=== PATIENT | male | born 1955 | race Caucasian/White ===

== ENCOUNTER 2018-06-01 06:16 | Observation (INO) ==
[2018-06-01] MEDS ORDERED: Bisacodyl 10 MG Supp RECTAL PRN (18:30)
[2018-06-01] MEDS ORDERED: Dextrose 50% in Water 50 ML Vial IV.PUSH PRN (18:34)
[2018-06-01] MEDS: Insulin NovoLOG Aspart Correctional Sugar Inj SQ SCH (20:43)
[2018-06-01] MEDS: Ketorolac Inj 30 MG/ML (IVP) Vial IV.PUSH PRN (21:37)
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
[2018-06-02] MEDS ORDERED: Temazepam 15 MG Capsule PO PRN (00:02)
[2018-06-02] MEDS ORDERED: Vancomycin Consult Pharmacy 1 EACH OTHER SCH (00:04)
[2018-06-02] MEDS ORDERED: Vancomycin Inj 1,250 MG in Sodium Chlor 0.9% Inj 250 ML IV.SIG ONE (00:05)
[2018-06-02] MEDS: Morphine Inj 4 MG/ML Vial IV.PUSH PRN ×3 (00:12→08:18)
[2018-06-02] MEDS ORDERED: Vancomycin Inj 2,200 MG in Sodium Chlor 0.9% Inj 500 ML IV.SIG ONE (01:00)
[2018-06-02] MEDS: Piperacil/Tazo 3.375 GM Premix 50 ML IV.SIG SCH ×4 (03:31→17:44)
[2018-06-02] MEDS: Ketorolac Inj 30 MG/ML (IVP) Vial IV.PUSH PRN ×3 (03:32→20:23)
[2018-06-02 08:29] LABS: Bilirubin,Urine Negative (Negative); Clarity,Urine Clear (Clear); Color,Urine Yellow (Yellw/Straw); Glucose,Urine (UA) 500 or Greater mg/dL (Negative); Leukocyte Esterase,Urine Negative (Negative); Nitrite,Urine Negative (Negative); Squamous Epithelial Cell,Urine 1 /hpf (0-5); Urobilinogen,Urine 4 or Greater mg/dL (Less than 2)
[2018-06-02] MEDS: Insulin Detemir Inj 1,000 UNIT/10 ML Vial SQ SCH ×2 (09:00→20:24)
[2018-06-02] MEDS: Insulin NovoLOG Aspart Correctional Sugar Inj SQ SCH ×3 (09:00→17:44)
[2018-06-02] MEDS ORDERED: Lidocaine 1%/Epinephrine 1:100,000 Inj 20 ML Vial INFILTRATN ONE (10:45)
[2018-06-02] MEDS ORDERED: Morphine Inj 4 MG/ML Vial IV.PUSH ONE (11:00)
--- NOTE | 2018-06-02 11:15 | MP ---
cc: Balaji Pedersen MD DATE OF OPERATION: 06/02/2018 DATE OF PROCEDURE: 06/02/2018 PREOPERATIVE DIAGNOSIS: Scrotal abscess. POSTOPERATIVE DIAGNOSIS: Scrotal abscess. PROCEDURE PERFORMED: Incision and drainage of scrotal abscess at the bedside. SURGEON: Balaji Pedersen MD ANESTHESIA: Local. COMPLICATIONS: None. DRAINS: None. SPECIMENS: Wound culture for aerobic and anaerobic. ESTIMATED BLOOD LOSS: Minimal. DISPOSITION: Stable. INDICATION FOR PROCEDURE: The patient is a 62-year-old man with history of diabetes, who presented with scrotal pain and swelling for the last 4 days. Scrotal ultrasound showed a left testicular cyst, but no evidence of abscess. On physical exam, he appeared to have more of an inferior scrotal and perineal fluctuant area consistent with an abscess. Treatment options were discussed and he elected to proceed with a bedside incision and drainage of scrotal abscess. After risks, benefits, and alternatives were explained to the patient, the patient elected to proceed and informed consent was obtained. DETAILS OF PROCEDURE: The patient was then prepped and draped in normal sterile surgical fashion, 1% lidocaine was then used for local anesthetic purposes. It was infiltrated around the fluctuant area. A small 1.5 cm stab incision was made and a significant amount of copious purulent material was expressed. Cultures were obtained. Once all the material was expressed, this area was much softer and less fluctuant. It was then irrigated out with normal saline. Wet-to-dry dressings were applied. This concluded the procedure. The patient remained stable. We will continue IV antibiotics pending cultures and do wet-to-dry dressings daily. Balaji Pedersen MD EMF/KD , 10:53 AM , 11:13 AM
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
--- NOTE | 2018-06-02 16:10 | P.PNFP ---
Subjective Interval history: Pt seen and examined for f/u of scrotal abscess. AFVSS. No acute events overnight. Pt reports since bedside I&D he has significant relief of his pain. In fact he denies any pain. He is ambulating and tolerating PO. Denies fever, chills, nausea, vomiting, abdominal pain, CP, SOB. Results - Labs Result diagrams: 06/02/18 11:29 Abnormal lab results 06/01/18 06/02/18 06/02/18 Range/Units 23:00 08:07 11:29 Estimated GFR 82 L (>89) mL/min POC Glucose 308 H (68-110) mg/dl Ur Specific [place] 1.040 H (1.002-1.035) 06/02/18 Range/Units 11:56 Estimated GFR (>89) mL/min POC Glucose 359 H (68-110) mg/dl Ur Specific [place] (1.002-1.035) BMP 06/02/18 11:29 Creatinine 0.93 Urine 06/01/18 Range/Units 23:00 Urine Color Yellow (Yellw/Straw) Urine Clarity Clear (Clear) Urine pH 6.0 (5.0-8.5) Ur Specific [place] 1.040 H (1.002-1.035) Urine Protein Negative (Neg-Trace) mg/dL Urine Glucose (UA) 500 or greater (Negative) mg/dL Physical Exam Vital signs: Vital Signs 06/01/18 18:17 06/01/18 19:00 06/01/18 19:24 Temperature 98.2 F 98.6 F Pulse Rate 63 52 L 60 Respiratory Rate 18 18 Blood Pressure 128/77 142/76 H Pulse Oximetry 95 98 06/02/18 00:00 06/02/18 04:00 06/02/18 07:00 Temperature 98 F Pulse Rate 69 59 L 53 L Respiratory Rate 16 18 Blood Pressure 122/78 101/54 L Pulse Oximetry 97 95 06/02/18 08:00 06/02/18 09:00 06/02/18 12:00 Temperature 98.2 F 98.6 F Pulse Rate 65 61 Respiratory Rate 18 18 18 Blood Pressure 108/66 122/78 Pulse Oximetry 96 96 06/02/18 12:30 06/02/18 14:58 Temperature Pulse Rate Respiratory Rate 18 18 Blood Pressure Pulse Oximetry Intake & Output 06/01/18 06/02/18 06/02/18 18:59 06:59 18:59 Intake Total 240 / 240 290 / 290 Output Total 200 / 200 Balance 240 / 240 90 / 90 Weight 88.63 kg Intake: IV 50 / 50 Zosyn 3.375 GM Premix 50 ML @ 50 / 50 100 mls/hr IV.SIG Q6H [facility] Rx#: [id number] Oral 240 / 240 240 / 240 Output: Urine 200 / 200 Other: Date of Last Bowel Movement 05/30/18 05/30/18 05/30/18 Weight On Admission 88.63 kg Narrative: GENERAL: WN, WD male sitting up on the side of bed eating. SKIN: Warm and dry. HEENT: AT/NC. Pupils equal and round. MMM. HEART: RRR no m/r/g. LUNGS: CTAB without wheezes or crackles. ABDOMEN: +BS, soft, NT, ND. : Erythema of scrotum with associated minimal draining ulceration previously incised earlier in the day. EXTREMITIES: No LE edema. 2+ pedal pulses. NEURO: Awake and alert. Nonfocal. PSYCH: Appropriate mood and affect. Assessment and Plan - Assessment (1) Scrotal abscess Code(s): N49.2 - Inflammatory disorders of scrotum Status: Acute - Assessment and Plan 62 YOWM with DM admitted on 06/01 for testicular pain and erythema found to have an abscess. 1. Scrotal abscess - Not meeting septic criteria (normal white count and lactic acid, afebrile) - Urology consulted and patient underwent bedside I&D today with copious amount of purulent material - Continue to observe on IV vanc and Zosyn - Follow wound cultures - Blood cultures NG x 1 day - Pain control with PRN Toradol and morphine 2. DM - Levemir and SSI per protocol DVT prophylaxis: SCDs, ambulation
[2018-06-03] MEDS: Insulin NovoLOG Aspart Correctional Sugar Inj SQ SCH ×5 (00:21→20:30)
[2018-06-03] MEDS: Piperacil/Tazo 3.375 GM Premix 50 ML IV.SIG SCH ×4 (00:28→17:38)
[2018-06-03 04:46] LABS: Baso % (Auto) 0.5 % (0.0-2.0); Eos # (Auto) 0.2 th/mm3 (0.0-0.4); Eos % (Auto) 3.5 % (0.0-4.0); Hematocrit 36.9 % (39.0-51.0); Hemoglobin 12.9 gm/dL (13.0-17.0); Lymph # (Auto) 1.8 th/mm3 (1.0-4.8); Lymph % (Auto) 27.1 % (9.0-44.0); Mean Corpuscular Hemoglobin 30.8 pg (27.0-34.0); Mean Corpuscular Volume 87.9 fL (80.0-100.0); Mean Platelet Volume 8.2 fL (7.0-11.0); Mono # (Auto) 0.6 th/mm3 (0.0-0.9); Mono % (Auto) 9.6 % (0.0-8.0); Neut % (Auto) 59.3 % (16.0-70.0); Platelet Count 156 th/mm3 (150-450); Red Cell Distribution Width 12.8 % (11.6-17.2); White Blood Count 6.7 th/mm3 (4.0-11.0)
[2018-06-03 05:12] LABS: Calcium 8.8 mg/dL (8.5-10.1); Carbon Dioxide 28.9 meq/L (21.0-32.0)
[2018-06-03] MEDS: Ketorolac Inj 30 MG/ML (IVP) Vial IV.PUSH PRN ×2 (05:14→11:51)
[2018-06-03] MEDS: Vancomycin Inj 1,750 MG in Sodium Chlor 0.9% Inj 500 ML IV.SIG SCH (06:05)
[2018-06-03] MEDS: Insulin Detemir Inj 1,000 UNIT/10 ML Vial SQ SCH ×2 (08:24→20:33)
--- NOTE | 2018-06-03 13:41 | P.PNFP ---
Subjective Interval history: Pt seen and examined. Endorses some moderate pain in his scrotum. Denies fever or chills. Also complaining of burning pain in his feet. He states he has never taken anything for his neuropathy but is open to trying something. He also tells me he is on his last pen of Levemir and currently doesn't have a PCP. Results - Labs Result diagrams: 06/03/18 04:03 06/03/18 04:03 Abnormal lab results 06/02/18 06/03/18 06/03/18 Range/Units 17:22 04:03 04:03 RBC 4.20 L (4.50-5.90) mil/mm3 Hgb 12.9 L D (13.0-17.0) gm/dL Hct 36.9 L (39.0-51.0) % [place] % (Auto) 9.6 H (0.0-8.0) % Estimated GFR 76 L (>89) mL/min POC Glucose 262 H (68-110) mg/dl Random Glucose 145 H D (74-106) mg/dL 06/03/18 06/03/18 Range/Units 08:06 11:50 RBC (4.50-5.90) mil/mm3 Hgb (13.0-17.0) gm/dL Hct (39.0-51.0) % [place] % (Auto) (0.0-8.0) % Estimated GFR (>89) mL/min POC Glucose 173 H 289 H (68-110) mg/dl Random Glucose (74-106) mg/dL Short CBC 06/03/18 Range/Units 04:03 WBC 6.7 (4.0-11.0) th/mm3 Hgb 12.9 L D (13.0-17.0) gm/dL Hct 36.9 L (39.0-51.0) % Plt Count 156 (150-450) th/mm3 BMP 06/03/18 04:03 Sodium 141 Potassium 4.0 Chloride 105 Carbon Dioxide 28.9 BUN 15 Creatinine 0.99 Calcium 8.8 Physical Exam Vital signs: Vital Signs 06/02/18 14:58 06/02/18 15:00 06/02/18 16:00 Temperature 98.1 F Pulse Rate 54 L 56 L Respiratory Rate 18 18 Blood Pressure 104/66 Pulse Oximetry 96 06/02/18 20:00 06/03/18 00:00 06/03/18 00:37 Temperature 98.0 F 98 F Pulse Rate 57 L 51 L 50 L Respiratory Rate 17 16 Blood Pressure 97/63 L 107/64 Pulse Oximetry 91 L 06/03/18 04:00 06/03/18 05:04 06/03/18 08:08 Temperature 98.7 F 98.3 F Pulse Rate 69 51 L 48 L Respiratory Rate 16 16 Blood Pressure 101/60 112/69 Pulse Oximetry 97 93 L 06/03/18 10:02 06/03/18 12:31 Temperature 98.1 F Pulse Rate 56 L 61 Respiratory Rate 16 18 Blood Pressure 105/68 Pulse Oximetry 97 Intake & Output 06/02/18 06/03/18 06/03/18 18:59 06:59 18:59 Intake Total 1300 / 1300 340 / 340 Output Total 600 / 600 1175 / 1175 Balance 700 / 700 -835 / -835 Weight 87.9 kg Intake: IV 100 / 100 100 / 100 Zosyn 3.375 GM Premix 50 ML @ 100 / 100 100 / 100 100 mls/hr IV.SIG Q6H [facility] Rx#: [id number] Oral 1200 / 1200 240 / 240 Output: Urine 600 / 600 1175 / 1175 Other: Date of Last Bowel Movement 05/30/18 05/30/18 05/30/18 Narrative: GENERAL: WN, WD male laying in bed in NAD. SKIN: Warm and dry. HEENT: AT/NC. Pupils equal and round. MMM. HEART: RRR no m/r/g. LUNGS: CTAB without wheezes or crackles. ABDOMEN: +BS, soft, NT, ND. EXTREMITIES: No LE edema. 2+ pedal pulses. NEURO: Awake and alert. Nonfocal. PSYCH: Appropriate mood and affect. Assessment and Plan - Assessment (1) Scrotal abscess Code(s): N49.2 - Inflammatory disorders of scrotum Status: Acute - Assessment and Plan 62 YOWM with DM admitted on 06/01 for testicular pain and erythema found to have an abscess. 1. Scrotal abscess - Not meeting septic criteria (normal white count and lactic acid, afebrile) - Urology consulted and patient underwent bedside I&D yesterday with copious amount of purulent material - Preliminary wound culture growing Group B strep - Continue vancomycin and Zosyn until finalized - Blood cultures NG x 2 days - Motrin PRN - [place] for breakthrough - Recheck scrotal U/S tomorrow to have another look at the cyst following resolution of the abscess 2. DM - SSI with Accuchecks per protocol - Required 29 units of SSI yesterday - Will increase Levemir to 20 units BID - Check A1c - Consider starting Metformin to enhance control 3. Neuropathy - Start gabapentin 300 mg BID DVT prophylaxis: SCDs, ambulation Discharge Planning: Anticipate D/C tomorrow
[2018-06-03] MEDS: Gabapentin 300 MG Capsule PO SCH (20:30)
[2018-06-04] MEDS: Piperacil/Tazo 3.375 GM Premix 50 ML IV.SIG SCH ×4 (00:12→17:51)
[2018-06-04] MEDS: Vancomycin Inj 1,750 MG in Sodium Chlor 0.9% Inj 500 ML IV.SIG SCH (06:16)
[2018-06-04] MEDS: Gabapentin 300 MG Capsule PO SCH (08:15)
[2018-06-04] MEDS: Insulin NovoLOG Aspart Correctional Sugar Inj SQ SCH ×3 (08:15→17:50)
[2018-06-04] MEDS: Insulin Detemir Inj 1,000 UNIT/10 ML Vial SQ SCH (08:15)
--- NOTE | 2018-06-04 12:09 | P.PNFP ---
Subjective Interval history: Pt seen and examined this morning. AFVSS. No acute events overnight. Reports he is feeling well. Pain has decreased. Tolerating PO. Repots gabapentin is helping his neuropathy. Feels ready to be discharged. Regarding his DM, patient reports he has never been on metformin or anything PO. He has only been on insulin. Needs refills for his Levemir. Results - Labs Result diagrams: 06/03/18 04:03 06/03/18 04:03 Abnormal lab results 06/03/18 06/03/18 06/04/18 Range/Units 16:51 20:21 10:52 POC Glucose 162 H 235 H 213 H (68-110) mg/dl Physical Exam Vital signs: Vital Signs 06/03/18 12:31 06/03/18 16:00 06/03/18 17:39 Temperature 98.1 F 98.1 F Pulse Rate 61 45 L Respiratory Rate 18 16 20 Blood Pressure 105/68 130/77 Pulse Oximetry 97 99 06/03/18 19:07 06/03/18 19:43 06/03/18 20:13 Temperature 98.1 F Pulse Rate 47 L 51 L 52 L Respiratory Rate 16 Blood Pressure 109/55 L Pulse Oximetry 98 06/03/18 21:09 06/03/18 22:08 06/03/18 23:05 Temperature Pulse Rate 50 L 48 L 47 L Respiratory Rate Blood Pressure Pulse Oximetry 06/03/18 23:52 06/04/18 00:00 06/04/18 00:56 Temperature 98.4 F Pulse Rate 47 L 59 L 51 L Respiratory Rate 16 Blood Pressure 113/65 Pulse Oximetry 99 06/04/18 02:10 06/04/18 03:03 06/04/18 03:57 Temperature Pulse Rate 50 L 54 L 51 L Respiratory Rate Blood Pressure Pulse Oximetry 06/04/18 04:48 06/04/18 05:05 06/04/18 06:06 Temperature 97.7 F Pulse Rate 51 L 65 46 L Respiratory Rate 16 Blood Pressure 103/58 L Pulse Oximetry 98 06/04/18 07:03 06/04/18 08:00 Temperature 98.3 F Pulse Rate 51 L 50 L Respiratory Rate 18 Blood Pressure 124/75 Pulse Oximetry 95 Intake & Output 06/03/18 06/04/18 06/04/18 18:59 06:59 18:59 Intake Total 2557.5 / 2557.5 710 / 710 Output Total 1100 / 1100 1425 / 1425 Balance 1457.5 / 1457.5 -715 / -715 Weight 87.8 kg Intake: IV 617.5 / 617.5 110 / 110 Zosyn 3.375 GM Premix 50 ML @ 100 / 100 110 / 110 100 mls/hr IV.SIG Q6H [facility] Rx#: [id number] Vancomycin Inj 1,750 MG In NS 517.5 / 517.5 Inj 500 ML @ 250 mls/hr IV.SIG Q24H [facility] Rx#:[id number] Oral 1940 / 1940 600 / 600 Output: Urine 1100 / 1100 1425 / 1425 Other: Date of Last Bowel Movement 05/30/18 05/30/18 Narrative: GENERAL: WN, WD male laying in bed in NAD. SKIN: Warm and dry. HEENT: AT/NC. Pupils equal and round. MMM. HEART: RRR no m/r/g. LUNGS: CTAB without wheezes or crackles. ABDOMEN: +BS, soft, NT, ND. : Scrotum s/p I&D with minimal erythema. EXTREMITIES: No LE edema. 2+ pedal pulses. NEURO: Awake and alert. Nonfocal. PSYCH: Appropriate mood and affect. Assessment and Plan - Assessment (1) Scrotal abscess Code(s): N49.2 - Inflammatory disorders of scrotum Status: Acute - Assessment and Plan 62 YOWM with DM admitted on 06/01 for testicular pain and erythema found to have an abscess. 1. Scrotal abscess - Not meeting septic criteria (normal white count and lactic acid, afebrile) - Urology consulted and patient underwent bedside I&D 06/02 with copious purulent drainage - Preliminary wound culture growing Group B strep; called to micro and there may be a second organism but will be finalized today - Continue vancomycin and Zosyn until finalized - Blood cultures NG x 3 days - Motrin PRN - [place] for breakthrough - Per urology reccs, will recheck scrotal U/S to have another look at the cyst - Anticipate transition to PO today once micro ID finalized 2. DM - SSI with Accuchecks per protocol - Required 14 units of SSI yesterday - Levemir increased to 20 units BID - A1c ordered - Start metformin 3. Neuropathy - Improving on gabapentin 300 mg BID DVT prophylaxis: SCDs, ambulation Discharge Planning: Hopefully today if testicular U/S done and cultures finalized
--- NOTE | 2018-06-04 12:35 | US ---
EXAM DATE: 06/04/2018 12:12 PM EDT AGE/SEX: 62 years / Male INDICATIONS: Testicular pain. Testicular drainage follow up from 3days ago. CLINICAL DATA: This is the patient's initial encounter. Patient reports that signs and symptoms have been present for 4 - 6 days and indicates a pain score of 5/10. MEDICAL/SURGICAL HISTORY: Diabetes mellitus type II. None. COMPARISON: [facility], US TESTICLES W DOPPLER, 06/01/2018. . MEASUREMENTS: Right Testicle:__3.9 x 2.8 x 1.9 cm Left Testicle:__3.2 x 2.2 x 1.7 cm FINDINGS: RIGHT: Testicle: Homogeneous echotexture without intra or extratesticular mass. Blood flow is symmetric and within normal limits. Epididymis: Within normal limits. Hydrocele: No hydrocele. Varicocele: No evidence of varicocele. LEFT: Testicle: Calcification in the left scrotal region measuring 3 x 2 x 4 mm there are several cystic st ructures largest measuring 11 x 10 x 9 mm. Several smaller structures including one measuring 5 x 5 x 4 mm. Blood flow is symmetric and within normal limits. Epididymis: Visualized cyst measuring 2 x 3 x 2 mm. Hydrocele: No hydrocele. Varicocele: Varicocele with increased flow on valsalva. Scrotum: Wall thickening/soft tissue edema. CONCLUSION: 1. Benign cysts/hematocele left testicle and left epididymis. 2. Benign calcification left scrotum. 3. Scrotal wall thickening/edema. Electronically signed by: Edwin Tony MD 06/04/2018 12:34 PM EDT
--- NOTE | 2018-06-04 14:35 | P.PNURO ---
Subjective Patient symptoms today: pt was seen at the bedside, resting comfortably in bed. s/p scrotal abscess I&D yesterday. States that feels much better, pain is well controlled, no f/c/n/v, no voiding issues. Repeat Scrotal US today did not show any residual or new abscess. Objective Vital Signs: Vital Signs 06/03/18 16:00 06/03/18 17:39 06/03/18 19:07 Temperature 98.1 F Pulse Rate 45 L 47 L Respiratory Rate 16 20 Blood Pressure 130/77 Pulse Oximetry 99 06/03/18 19:43 06/03/18 20:13 06/03/18 21:09 Temperature 98.1 F Pulse Rate 51 L 52 L 50 L Respiratory Rate 16 Blood Pressure 109/55 L Pulse Oximetry 98 06/03/18 22:08 06/03/18 23:05 06/03/18 23:52 Temperature Pulse Rate 48 L 47 L 47 L Respiratory Rate Blood Pressure Pulse Oximetry 06/04/18 00:00 06/04/18 00:56 06/04/18 02:10 Temperature 98.4 F Pulse Rate 59 L 51 L 50 L Respiratory Rate 16 Blood Pressure 113/65 Pulse Oximetry 99 06/04/18 03:03 06/04/18 03:57 06/04/18 04:48 Temperature 97.7 F Pulse Rate 54 L 51 L 51 L Respiratory Rate 16 Blood Pressure 103/58 L Pulse Oximetry 98 06/04/18 05:05 06/04/18 06:06 06/04/18 07:03 Temperature Pulse Rate 65 46 L 51 L Respiratory Rate Blood Pressure Pulse Oximetry 06/04/18 08:00 06/04/18 12:00 Temperature 98.3 F 97.6 F Pulse Rate 50 L 51 L Respiratory Rate 18 20 Blood Pressure 124/75 126/76 Pulse Oximetry 95 94 L Intake & Output 06/03/18 06/04/18 06/04/18 18:59 06:59 18:59 Intake Total 2557.5 / 2557.5 710 / 710 Output Total 1100 / 1100 1425 / 1425 Balance 1457.5 / 1457.5 -715 / -715 Weight 87.8 kg Intake: IV 617.5 / 617.5 110 / 110 Zosyn 3.375 GM Premix 50 ML @ 100 / 100 110 / 110 100 mls/hr IV.SIG Q6H MAYE Rx#: [id number] Vancomycin Inj 1,750 MG In NS 517.5 / 517.5 Inj 500 ML @ 250 mls/hr IV.SIG Q24H MAYE Rx#:[id number] Oral 1940 / 1940 600 / 600 Output: Urine 1100 / 1100 1425 / 1425 Other: Date of Last Bowel Movement 05/30/18 05/30/18 Result Diagrams: 06/03/18 04:03 06/03/18 04:03 Imaging: Impressions Scrotum Ultrasound 06/04/18 00:00 CONCLUSION: 1. Benign cysts/hematocele left testicle and left epididymis. 2. Benign calcification left scrotum. 3. Scrotal wall thickening/edema. Medications and IVs: Active Medications Generic Name Dose Route Start Last Admin Trade Name Freq PRN Reason Stop Dose Admin Hydrocodone Bitart/Acetaminophen 1 tab 06/03/18 13:35 Carroll 5/325 PO Q4H PRN BREAKTHROUGH PAIN Al Hydroxide/Mg Hydroxide 30 ml 06/01/18 18:30 06/04/18 05:37 Milk Of Magnesia Liq PO 30 ml Q12H PRN Administration Mild Constipation Bisacodyl 10 mg 06/01/18 18:30 Dulcolax Supp RECTAL DAILY PRN SEVERE CONSITIPATION Dextrose 50 ml 06/01/18 18:34 D50w Vial IV.PUSH UNSCH PRN PER HYPOGLYCEMIA PROTOCOL Gabapentin 300 mg 06/03/18 21:00 06/04/18 08:15 Neurontin PO 300 mg BID MAYE Administration Glucagon 1 mg 06/01/18 18:34 Glucagon Inj OTHER PRN PRN for Hypoglycemia Protocol Pharmacy Profile Note 0 mls @ 0 mls/hr 06/02/18 00:04 Vancomycin Consult Pharmacy OTHER UNSCH MAYE As Directed Piperacillin/Tazobactam/Dextrose 50 mls @ 100 mls/hr 06/02/18 00:00 06/04/18 13:37 Zosyn 3.375 Gm Premix IV.SIG 100 mls/hr Q6H MAYE Administration Vancomycin HCl 1,750 mg/ 517.5 mls @ 250 mls/hr 06/03/18 06:00 06/04/18 06:16 Sodium Chloride IV.SIG 250 mls/hr Q24H MAYE Administration Insulin Aspart 0 unit 06/01/18 21:00 07/16/18 13:37 Novolog Insulin Suppl Scale Inj SQ 4 unit ACHS MAYE Administration Protocol Insulin Detemir 20 unit 06/03/18 21:00 06/04/18 08:15 Levemir Inj SQ 20 unit BID MAYE Administration Lactulose 30 ml 06/01/18 18:30 Lactulose Liq PO DAILY PRN SEVERE CONSITIPATION Metformin HCl 500 mg 06/04/18 18:00 Glucophage PO BIDPC [facility] Miscellaneous Information 0 each 06/05/18 05:45 [facility] Ordered Lab Info OTHER 06/05/18 05:46 ONCE ONE Sennosides 17.2 mg 06/01/18 18:30 Senokot PO Q12H PRN Moderate Constipation Sodium Chloride 2 ml 06/04/18 09:00 06/04/18 08:16 Ns Flush IV.FLUSH Not Given BID [facility] Sodium Chloride 2 ml 06/04/18 03:32 06/04/18 05:39 Ns Flush IV.FLUSH 2 ml PRN PRN Administration FLUSH AFTER USING IV ACCESS Temazepam 15 mg 06/02/18 00:02 Restoril PO HS PRN INSOMNIA Objective Remarks: NAD RRR Clear lungs Scrotal incision/ wound post I&D is healing well. Packing is in place, sanguineous discharge noted. Right testicle is still firm and slightly swollen Assessment and Plan - Plan 62y.o m s/p I&D of scrotal abscess - No additional intervention needed - Continue care as per primary team - Continue antbx - Change packing and dressing daily Urology remain available as needed Discussed Condition With: Dr Nuvia JACOBO attending
[2018-06-04] MEDS ORDERED: Diphtheria/Tetanus/Pertussis Vaccine Inj 0.5 ML Syringe IM ONE (15:02)
[2018-06-04] MEDS ORDERED: Fluconazole 100 MG Tablet PO ONE (15:16)
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
[2018-06-04 16:48] LABS: Hemoglobin A1c 12.9 % (4.3-6.0)
[2018-06-05] MEDS ORDERED: Pharmacy Ordered Lab Info OTHER ONE (05:45)
== END 2018-06-04 18:56 | disposition home or self-care (01) ==
LOC: NEDDLT 06:16 → HCIS 06:16 → HCIN 06:16 → HCIS 06-03 16:00
PROVIDERS: ADMIT Family Medicine; ATTEND Family Medicine

== ENCOUNTER 2018-06-24 16:48 | Inpatient (IN) ==
[2018-06-24] MEDS ORDERED: Acetaminophen 325 MG Tablet PO PRN (19:25)
[2018-06-24] MEDS ORDERED: Temazepam 15 MG Capsule PO PRN (19:25)
[2018-06-24] MEDS ORDERED: Bisacodyl 10 MG Supp RECTAL PRN (19:25)
[2018-06-24] MEDS ORDERED: Dextrose 50% in Water 50 ML Vial IV.PUSH PRN (19:30)
[2018-06-25] MEDS ORDERED: Dextrose 50% in Water 50 ML Vial IV.PUSH PRN (00:46)
[2018-06-25] MEDS: Sod Chloride 0.9% Inj 1,000 ML IV.CONT SCH ×3 (01:35→10:56)
[2018-06-25] MEDS: Senna/Docusate Sodium 8.6/50 MG Tablet PO SCH ×2 (01:37→08:57)
[2018-06-25] MEDS ORDERED: Chlorhexidine Gluconate 2% 1 Pack (2 Cloths) TOPICAL PRN (04:00)
[2018-06-25] MEDS ORDERED: Chlorhexidine Gluconate 2% 1 Pack (2 Cloths) TOPICAL SCH (04:00)
[2018-06-25 04:46] LABS: Baso # (Auto) 0.1 th/mm3 (0.0-0.2); Baso % (Auto) 0.6 % (0.0-2.0); Eos # (Auto) 0.2 th/mm3 (0.0-0.4); Eos % (Auto) 2.6 % (0.0-4.0); Hematocrit 37.9 % (39.0-51.0); Hemoglobin 13.2 gm/dL (13.0-17.0); Lymph # (Auto) 1.8 th/mm3 (1.0-4.8); Lymph % (Auto) 19.8 % (9.0-44.0); Mean Corpuscular HGB Conc 34.8 % (32.0-36.0); Mean Corpuscular Hemoglobin 30.9 pg (27.0-34.0); Mean Corpuscular Volume 88.8 fL (80.0-100.0); Mean Platelet Volume 8.9 fL (7.0-11.0); Mono # (Auto) 0.6 th/mm3 (0.0-0.9); Neut # (Auto) 6.4 th/mm3 (1.8-7.7); Platelet Count 129 th/mm3 (150-450); Red Blood Count 4.27 mil/mm3 (4.50-5.90); Red Cell Distribution Width 11.9 % (11.6-17.2); White Blood Count 9.1 th/mm3 (4.0-11.0)
[2018-06-25 04:56] LABS: Calcium 8.3 mg/dL (8.5-10.1)
[2018-06-25 04:57] LABS: Carbon Dioxide 26.8 meq/L (21.0-32.0)
[2018-06-25] MEDS: Insulin NovoLOG Aspart Correctional Sugar Inj SQ SCH ×3 (06:51→12:11)
[2018-06-25] MEDS ORDERED: Insulin Detemir Inj 1,000 UNIT/10 ML Vial SQ SCH (09:00)
--- NOTE | 2018-06-25 14:33 | P.HP ---
History of Present Illness Primary Care Physician: UNKNOWN Chief Complaint: Dizziness History of Present Illness: 62-year-old male with known history of diabetes who presented to the emergency department because of dizziness. Patient states that he does have a long history of diabetes and he usually takes his medication. However for 1 week now he has been without his insulin for his diabetic care. Patient states that he is on a mail order shipment and he has not been able to get his prescriptions sent to him for his insulin as well as his test strips. Patient states that his only symptom for him coming to the emergency department was because he was dizzy. Patient had workup done emergency department found to have a glucose of 900 which responded well to IV insulin. Laboratory studies do not indicate any anion gap or elevated beta hydroxybutyrate. Patient was started on insulin drip in the emergency department and his glucose improved significantly. Lately patient had a manageable glucose by 9 PM last night. Patient was started on Levemir and sliding scale insulin. Patient's diabetes is under good control at this time. Patient denied any other symptoms to include headache, visual disturbances, difficulty eating swallowing food, denies any nausea, vomiting, abdominal pain, diarrhea. Denies any chest pain, shortness of breath, dyspnea. - Diagnosis (1) Uncontrolled diabetes mellitus (2) Noncompliance with medication regimen Inpatient Certification: I certify that the inpatient services were ordered in accordance with Medicare regulations governing the order. This includes certification that hospital inpatient services are reasonable and necessary and in the case of services not specified as inpatient-only under 42 CFR 419.22(n), that they are appropriately provided as inpatient services in accordance to with the 2-midnight benchmark under 43 CFR 412.3(e) Estimated Total Length of Stay (Days): 2 Plans for Post Hospital Care: Home Review of Systems All other systems reviewed negative except as stated in HPI Constitutional: Reports weakness Neurologic: Reports dizziness PMFSH - History History Provided By: Patient - Medical History Medical History: Medical History (Last Reviewed 06/25/18 @ 14:27 by SCOTT Shore) Diabetes - Surgical History Surgical History: Surgical History (Last Updated 06/25/18 @ 14:28 by SCOTT Shore) No history of previous surgery - Family History Family History: Family History (Last Updated 06/25/18 @ 14:28 by SCOTT Shore) Mother Family history of cancer Leukemia - Tobacco History Second Hand Smoke Exposure: No Tobacco Use In Past 30 Days: No Smoking Status: Never smoker - Alcohol History How Often Do You Have a Drink Containing Alcohol: Never - Substance Use History Substance History: No History of Abuse Medications and Allergies Active Medications: Active Medications Acetaminophen (Tylenol) 650 mg PO Q4H PRN PRN Reason: Temp > 100.4 Al Hydroxide/Mg Hydroxide (Milk Of Magnesia Liq) 30 ml PO Q12H PRN PRN Reason: Mild Constipation Bisacodyl (Dulcolax Supp) 10 mg RECTAL DAILY PRN PRN Reason: SEVERE CONSITIPATION Chlorhexidine Gluconate (Chlorhexidine 2% Cloth) 3 pack TOPICAL DAILY@0400 [facility] Stop: 06/30/18 03:59 Last Admin: 06/25/18 06:40 Dose: 3 pack Chlorhexidine Gluconate (Chlorhexidine 2% Cloth) 3 pack TOPICAL DAILY@0400 PRN PRN Reason: Extra cloth needed Stop: 06/30/18 03:59 Dextrose (D50w Vial) 50 ml IV.PUSH UNSCH PRN PRN Reason: PER HYPOGLYCEMIA PROTOCOL Dextrose (D50w Vial) 50 ml IV.PUSH UNSCH PRN PRN Reason: PER HYPOGLYCEMIA PROTOCOL Glucagon (Glucagon Inj) 1 mg OTHER PRN PRN PRN Reason: for Hypoglycemia Protocol Glucagon (Glucagon Inj) 1 mg OTHER PRN PRN PRN Reason: for Hypoglycemia Protocol Sodium Chloride (Ns Inj) 1,000 mls @ 125 mls/hr IV.CONT .Q8H [facility] Last Admin: 06/25/18 10:56 Dose: 125 mls/hr Insulin Aspart (Novolog Insulin Correctional Sugar Inj) 0 unit SQ Q6HR [facility]; Protocol Last Admin: 06/25/18 12:11 Dose: 10 unit Insulin Detemir (Levemir Inj) 15 unit SQ BID [facility] Last Admin: 06/25/18 08:56 Dose: 15 unit Lactulose (Lactulose Liq) 30 ml PO DAILY PRN PRN Reason: SEVERE CONSITIPATION Ondansetron HCl (Zofran Inj) 4 mg IV.PUSH Q6H PRN PRN Reason: NAUSEA OR VOMITING Last Admin: 06/25/18 12:12 Dose: 4 mg Senna/Docusate Sodium (Litzy-Colace) 1 tab PO BID [facility] Last Admin: 06/25/18 08:57 Dose: Not Given Sennosides (Senokot) 17.2 mg PO Q12H PRN PRN Reason: Moderate Constipation Temazepam (Restoril) 15 mg PO HS PRN PRN Reason: INSOMNIA Allergies Allergy/AdvReac Type Severity Reaction Status Date / Time No Known Allergies Allergy Verified 06/24/18 17:09 Exam Vital signs: Vital Signs 06/25/18 00:01 06/25/18 00:03 06/25/18 00:15 Temperature 98.0 F Pulse Rate 68 64 Respiratory Rate 11 L 12 Blood Pressure 149/85 H 149/85 H Pulse Oximetry 91 L 97 06/25/18 01:00 06/25/18 01:35 06/25/18 02:00 Temperature Pulse Rate 64 68 66 Respiratory Rate 18 13 10 L Blood Pressure 144/79 H 140/81 Pulse Oximetry 96 97 96 06/25/18 03:00 06/25/18 03:21 06/25/18 03:22 Temperature Pulse Rate 66 60 63 Respiratory Rate 20 10 L 13 Blood Pressure 114/56 L 114/96 H Pulse Oximetry 95 82 L 98 06/25/18 04:00 06/25/18 05:00 06/25/18 05:12 Temperature 98.6 F Pulse Rate 62 64 64 Respiratory Rate 15 12 16 Blood Pressure 114/56 L 142/77 H 142/77 H Pulse Oximetry 95 95 95 06/25/18 06:00 06/25/18 08:00 06/25/18 09:00 Temperature 97.7 F Pulse Rate 64 86 66 Respiratory Rate 14 21 16 Blood Pressure 112/62 139/78 Pulse Oximetry 96 95 06/25/18 10:08 06/25/18 11:00 Temperature Pulse Rate 66 Respiratory Rate 21 15 Blood Pressure 119/64 143/84 H Pulse Oximetry Intake & Output 06/24/18 06/25/18 06/25/18 18:59 06:59 18:59 Intake Total 999 / 999 1000 / 1000 Output Total 600 / 600 Balance 399 / 399 1000 / 1000 Weight 70.8 kg Intake: IV 999 / 999 1000 / 1000 NS Inj 1,000 ML @ 125 mls/hr IV 999 / 999 1000 / 1000 .CONT .Q8H [facility] Rx#:[id number] Output: Urine 600 / 600 Other: # Voids 2 Date of Last Bowel Movement 06/24/18 06/24/18 Weight On Admission 70.8 kg Narrative: GENERAL: Well-developed, well-nourished, in no acute distress. alert and orientated HEENT: Head is normocephalic without any lesions or masses noted. Facial features are symmetric. Eyes: Pupils equal round reactive to light. Extraocular muscles are intact. Conjunctivae were clear. Oropharyngeal: Pharynx without any erythema edema. Tongue is midline without deviation. Buccal mucosa is moist without any masses or lesions NECK: Supple without any masses. Trachea midline no deviation. No JVD, no bruits are appreciated CARDIAC: Regular rhythm, regular rate. S1/S2 are heard. No murmurs gallops or rubs. LUNGS: Clear to auscultation bilaterally. No wheeze, rhonchi or rales. No use of accessory muscles on inspiration or expiration. ABDOMEN: Soft, nontender. Nondistended. Bowel sounds heard in all 4 quadrants. No organomegaly or masses. Negative rebound, negative guarding EXTREMITIES: No edema, pulses are equal bilaterally. No cyanosis or clubbing NEUROLOGY: Mood and affect appear appropriate. Cranial nerves II through XII grossly intact. Muscle strength 5/5 in upper and lower extremities bilaterally. Deep tendon reflexes are 2+ in upper and lower extremities bilaterally. Results - Labs CBC & Chem 7: 06/25/18 04:25 06/25/18 04:25 Labs: Laboratory Results - last 24 hr 06/25/18 06/25/18 06/25/18 00:13 01:24 02:59 CBC w Diff WBC RBC Hgb Hct MCV MCH MCHC RDW Plt Count MPV Neut % (Auto) Lymph % (Auto) [place] % (Auto) Eos % (Auto) Baso % (Auto) Neut # (Auto) Lymph # (Auto) [place] # (Auto) Eos # (Auto) Baso # (Auto) WBC Differential Differential Comment Sodium Potassium Chloride Carbon Dioxide Anion Gap BUN Creatinine Estimated GFR POC Glucose 239 H 112 H 268 H Random Glucose Calcium 06/25/18 06/25/18 06/25/18 04:15 04:25 04:25 CBC w Diff Auto diff final WBC 9.1 RBC 4.27 L Hgb 13.2 Hct 37.9 L MCV 88.8 D MCH 30.9 MCHC 34.8 RDW 11.9 Plt Count 129 L MPV 8.9 Neut % (Auto) 70.0 Lymph % (Auto) 19.8 [place] % (Auto) 7.0 Eos % (Auto) 2.6 Baso % (Auto) 0.6 Neut # (Auto) 6.4 Lymph # (Auto) 1.8 [place] # (Auto) 0.6 Eos # (Auto) 0.2 Baso # (Auto) 0.1 WBC Differential . Differential Comment . Sodium 145 Potassium 4.0 Chloride 111 H D Carbon Dioxide 26.8 Anion Gap 7 BUN 30 H Creatinine 1.40 H Estimated GFR 51 L POC Glucose 226 H Random Glucose 195 H D Calcium 8.3 L 06/25/18 06/25/18 06:47 11:45 CBC w Diff WBC RBC Hgb Hct MCV MCH MCHC RDW Plt Count MPV Neut % (Auto) Lymph % (Auto) [place] % (Auto) Eos % (Auto) Baso % (Auto) Neut # (Auto) Lymph # (Auto) [place] # (Auto) Eos # (Auto) Baso # (Auto) WBC Differential Differential Comment Sodium Potassium Chloride Carbon Dioxide Anion Gap BUN Creatinine Estimated GFR POC Glucose 225 H 338 H Random Glucose Calcium Caprini VTE Risk Assessment Caprini VTE Risk Assessment: Moderate/High Risk (score >= 2) Caprini Risk Assessment Model: Point Value = 1 Point Value = 2 Point Value = 3 Point Value = 5 Age 41-60 Minor surgery BMI > 25 kg/m2 Swollen legs Varicose veins or History of unexplained or recurrent spontaneous Oral contraceptives or hormone replacement Sepsis (< 1 month) Serious lung disease, including pneumonia (< 1 month) Abnormal pulmonary function Acute myocardial infarction Congestive heart failure (< 1 month) History of inflammatory bowel disease Medical patient at bed rest Age 61-74 Arthroscopic surgery Major open surgery (> 45 min) Laparoscopic surgery (> 45 min) Malignancy Confined to bed (> 72 hours) Immobilizing plaster cast Central venous access Age >= 75 History of VTE Family history of VTE Factor V Leiden Prothrombin [id number] Lupus anticoagulant Anticardiolipin antibodies Elevated serum homocysteine Heparin-induced thrombocytopenia Other congenital or acquired thrombophilia Stroke (< 1 month) Elective arthroplasty Hip, pelvis, or leg fracture Acute spinal cord injury (< 1 month) Prophylaxis Regimen: Total Risk Factor Score Risk Level Prophylaxis Regimen 0-1 Low Early ambulation 2 Moderate Order ONE of the following: *Sequential Compression Device (SCD) *Heparin 5000 units SQ BID 3-4 Higher Order ONE of the following medications: *Heparin 5000 units SQ TID *Enoxaparin/Lovenox 40 mg SQ daily (WT < 150 kg, CrCl > 30 mL/min) *Enoxaparin/Lovenox 30 mg SQ daily (WT < 150 kg, CrCl > 10-29 mL/min) *Enoxaparin/Lovenox 30 mg SQ BID (WT < 150 kg, CrCl > 30 mL/min) AND/OR *Sequential Compression Device (SCD) 5 or more Highest Order ONE of the following medications: *Heparin 5000 units SQ TID (Preferred with Epidurals) *Enoxaparin/Lovenox 40 mg SQ daily (WT < 150 kg, CrCl > 30 mL/min) *Enoxaparin/Lovenox 30 mg SQ daily (WT < 150 kg, CrCl > 10-29 mL/min) *Enoxaparin/Lovenox 30 mg SQ BID (WT < 150 kg, CrCl > 30 mL/min) AND *Sequential Compression Device (SCD) Assessment and Plan - Assessment (1) Uncontrolled diabetes mellitus Code(s): E11.65 - Type 2 diabetes mellitus with hyperglycemia Status: Acute (2) Noncompliance with medication regimen Code(s): Z91.14 - Patient's other noncompliance with medication regimen Status : Acute - Plan Hyperosmolar hyperglycemia in a diabetic patient with medication noncompliance -Secondary to the patient not taking his insulin for 1 week due to mail order prescription has not arrived to his house. -Patient given IV insulin, started on insulin drip for short period until glucose was better. -Anion gap is normal, beta hydroxybutyrate was normal -Levemir 15 units twice daily -Accu-Cheks with sliding scale insulin -Patient counseled on strict compliance with his diabetic medication. And if he runs out of medications and has not received his mail order prescriptions he needs to contact his biomedical doctor for prescriptions locally so he does not have severe hypoglycemia requiring hospitalization. Acute renal failure supposed on chronic kidney disease -Renal functions have improved with IV hydration -Continue monitor renal function -Avoid nephrotoxins DVT prevention -Monitor compression devices Discharge Planning: Discharge home in stable condition Activity: Ad leonard. Diet: Diabetic diet Medication per medication reconciliation Follow-up with primary medical doctor in 1 week
[2018-06-26 21:38] VITALS: BP 133/63; PULSE 64; RESP 33; TEMP 97.7; O2SAT 95
--- NOTE | 2018-06-27 11:40 | ED ---
HPI Related Data Previous Rx's Medication Instructions Recorded gabapentin [Neurontin] 300 mg PO BID #90 cap 06/04/18 metformin [Glucophage] 500 mg PO BIDPC #60 tab 06/04/18 insulin aspart U-100 [Novolog 0 unit SUB-Q Q6HR #1 vial 06/25/18 U-100 Insulin aspart] insulin detemir U-100 [Levemir 20 unit SUB-Q BID 30 Days #12 ml 06/25/18 U-100 Insulin] Allergies Allergy/AdvReac Type Severity Reaction Status Date / Time No Known Allergies Allergy Verified 06/24/18 17:09 Review of Systems Neurologic Reports vertigo and Reports weakness [facility] Medical History Medical History Diabetes (Acute) Surgical History Surgical History No history of previous surgery (Acute) Family History Family History Mother Family history of cancer Leukemia Social History Social History Substance History: No History of Abuse Second Hand Smoke Exposure: No Smoking Status: Never smoker How Often Do You Have a Drink Containing Alcohol: Never Exam Narrative Exam Narrative: Course Initial Documented Vital Signs Blood Pressure 149/85 H 06/25/18 00:01 Last Documented Vital Signs Temperature 97.7 F 06/25/18 08:00 Pulse Rate 64 06/25/18 12:06 Respiratory Rate 33 H 06/25/18 12:06 Blood Pressure 133/63 06/25/18 12:06 Pulse Oximetry 95 06/25/18 08:00 Critical Care Time Critical Care Time: No Medical Decision Making Lab Data Result diagrams: 06/25/18 04:25 06/25/18 04:25 Lab Results 06/25/18 06/25/18 06/25/18 Range/Units 00:13 01:24 02:59 CBC w Diff WBC (4.0-11.0) th/mm3 RBC (4.50-5.90) mil/mm3 Hgb (13.0-17.0) gm/dL Hct (39.0-51.0) % MCV (80.0-100.0) fL MCH (27.0-34.0) pg MCHC (32.0-36.0) % RDW (11.6-17.2) % Plt Count (150-450) th/mm3 MPV (7.0-11.0) fL Neut % (Auto) (16.0-70.0) % Lymph % (Auto) (9.0-44.0) % Darke % (Auto) (0.0-8.0) % Eos % (Auto) (0.0-4.0) % Baso % (Auto) (0.0-2.0) % Neut # (Auto) (1.8-7.7) th/mm3 Lymph # (Auto) (1.0-4.8) th/mm3 Darke # (Auto) (0.0-0.9) th/mm3 Eos # (Auto) (0.0-0.4) th/mm3 Baso # (Auto) (0.0-0.2) th/mm3 WBC Differential Differential Comment Sodium (136-145) meq/L Potassium (3.5-5.1) meq/L Chloride (98-107) meq/L Carbon Dioxide (21.0-32.0) meq/L Anion Gap (5-15) meq/L BUN (7-18) mg/dL Creatinine (0.60-1.30) mg/dL Estimated GFR (>89) mL/min POC Glucose 239 H 112 H 268 H (68-110) mg/dl Random Glucose (74-106) mg/dL Calcium (8.5-10.1) mg/dL 06/25/18 06/25/18 06/25/18 Range/Units 04:15 04:25 04:25 CBC w Diff Auto diff final WBC 9.1 (4.0-11.0) th/mm3 RBC 4.27 L (4.50-5.90) mil/mm3 Hgb 13.2 (13.0-17.0) gm/dL Hct 37.9 L (39.0-51.0) % MCV 88.8 D (80.0-100.0) fL MCH 30.9 (27.0-34.0) pg MCHC 34.8 (32.0-36.0) % RDW 11.9 (11.6-17.2) % Plt Count 129 L (150-450) th/mm3 MPV 8.9 (7.0-11.0) fL Neut % (Auto) 70.0 (16.0-70.0) % Lymph % (Auto) 19.8 (9.0-44.0) % Darke % (Auto) 7.0 (0.0-8.0) % Eos % (Auto) 2.6 (0.0-4.0) % Baso % (Auto) 0.6 (0.0-2.0) % Neut # (Auto) 6.4 (1.8-7.7) th/mm3 Lymph # (Auto) 1.8 (1.0-4.8) th/mm3 Darke # (Auto) 0.6 (0.0-0.9) th/mm3 Eos # (Auto) 0.2 (0.0-0.4) th/mm3 Baso # (Auto) 0.1 (0.0-0.2) th/mm3 WBC Differential . Differential Comment . Sodium 145 (136-145) meq/L Potassium 4.0 (3.5-5.1) meq/L Chloride 111 H D (98-107) meq/L Carbon Dioxide 26.8 (21.0-32.0) meq/L Anion Gap 7 (5-15) meq/L BUN 30 H (7-18) mg/dL Creatinine 1.40 H (0.60-1.30) mg/dL Estimated GFR 51 L (>89) mL/min POC Glucose 226 H (68-110) mg/dl Random Glucose 195 H D (74-106) mg/dL Calcium 8.3 L (8.5-10.1) mg/dL 06/25/18 06/25/18 Range/Units 06:47 11:45 CBC w Diff WBC (4.0-11.0) th/mm3 RBC (4.50-5.90) mil/mm3 Hgb (13.0-17.0) gm/dL Hct (39.0-51.0) % MCV (80.0-100.0) fL MCH (27.0-34.0) pg MCHC (32.0-36.0) % RDW (11.6-17.2) % Plt Count (150-450) th/mm3 MPV (7.0-11.0) fL Neut % (Auto) (16.0-70.0) % Lymph % (Auto) (9.0-44.0) % Darke % (Auto) (0.0-8.0) % Eos % (Auto) (0.0-4.0) % Baso % (Auto) (0.0-2.0) % Neut # (Auto) (1.8-7.7) th/mm3 Lymph # (Auto) (1.0-4.8) th/mm3 Darke # (Auto) (0.0-0.9) th/mm3 Eos # (Auto) (0.0-0.4) th/mm3 Baso # (Auto) (0.0-0.2) th/mm3 WBC Differential Differential Comment Sodium (136-145) meq/L Potassium (3.5-5.1) meq/L Chloride (98-107) meq/L Carbon Dioxide (21.0-32.0) meq/L Anion Gap (5-15) meq/L BUN (7-18) mg/dL Creatinine (0.60-1.30) mg/dL Estimated GFR (>89) mL/min POC Glucose 225 H 338 H (68-110) mg/dl Random Glucose (74-106) mg/dL Calcium (8.5-10.1) mg/dL Discharge Plan Discharge Condition Condition: Stable Discharge Order Discharge Orders: Discharge Order (Routine); Ordered 06/25/18 Ordered By: Nitish Esparza Discharge Details Anticipated Discharge Date: 06/25/18 Physicians Team ED Provider: Rikki Peacock Primary Care Provider: UNKNOWN, Attending Provider: Derrell Garcia Post Discharge Care Plan Care Plan Goals: Your Health Problems: Goals to Promote Your Health: * To prevent worsening of your condition * To maintain your health at the optimal level Directions to Meet Your Goals: * Take your medications as prescribed * Follow your dietary instruction * Follow activity as directed * Keep your appointments as scheduled * Take your immunizations and boosters as scheduled * If your symptoms worsen call your PCP * If no PCP go to Urgent Care or Emergency Room Smoking is dangerous to your health. Avoid second hand smoke. You may reach the 24-hour crisis hotline for domestic abuse at . Status ED Status: Admitted Patient
== END 2018-06-25 16:47 | disposition home or self-care (01) ==
LOC: PHED 16:48 → PHICU 06-25 00:01
PROVIDERS: ADMIT Family Medicine; ATTEND Family Medicine